=== PATIENT | female | born 1990 | race Caucasian/White ===

== ENCOUNTER 2018-04-17 08:24 | Emergency (ER) | payer MEDICAID ==
[~2018-04-17] VITALS: Ht 160 cm; Wt 67.1 kg
[~2018-04-17 08:24] MED LIST: AZITHROMYCIN250 MG ORAL; NKM; TAMIFLU75 MG ORAL
[2018-04-17 08:39] VITALS: BP 101/70
--- NOTE | 2018-04-17 08:47 | Emergency Room Report ---
History of Present Illness General Chief Complaint: Pain Source: Patient Present Illness HPI Patient presents with complaints of discomfort to the medial aspect of the left foot Patient points to the palmar aspect Reports that she has been having this discomfort off-and-on for a while however reports that she feels the area has become more uncomfortable that she this morning with standing Denies any obvious trauma she reports that she did go hiking which she was not sure if it exacerbated the situation denies any other fall or trauma denies any pain to the ankle Allergies: Coded Allergies: NO KNOWN DRUG ALLERGIES (Verified Allergy, Unknown, 08/10/15) Patient History Past Medical History: see triage record Pertinent Family History: none Now: No Reviewed Nursing Documentation: PMH: Agreed; PSxH: Agreed Nursing Documentation-PMH Past Medical History: No Stated History Hx Hypertension: No Hx Asthma: No Hx COPD: No Hx Diabetes: No Hx Neurological Problems: No - Scoliosis Review of Systems All Other Systems: negative except mentioned in HPI Physical Exam Vital Signs Date Time Temp Pulse Resp B/P (MAP) Pulse Ox O2 Delivery O2 Flow Rate FiO2 04/17/18 08:27 98.5 75 18 101/70 100 Room Air 98.4 Sp02 EP Interpretation: reviewed, normal General Appearance: well appearing, no apparent distress Head: normocephalic, atraumatic Eyes: bilateral eye PERRL, bilateral eye EOMI ENT: normal pharynx Neck: supple Musculoskeletal: other - Discomfort noted to palpation of the medial aspect of the palmar region on the left foot no obvious edema no obvious ecchymosis there is some increased discomfort with extending the foot Neurologic: alert, oriented x3 Skin: normal color, no rash Lymphatic: no adenopathy Medical Decision Making Diagnostic Impression: Primary Impression: Foot sprain ER Course Given the history exam and presentation Patient has imaging studies obtained No obvious acute pathology is seen patient appears to have some aspect of tendinitis/plantar fasciitis At this time will have conservative outpatient follow-up and is provided with podiatry referral Other X-Ray Diagnostic Results Other X-Ray Diagnostic Results : X-Ray ordered: Left foot # of Views/Limited Vs Complete: 4 View Indication: Pain EP Interpretation: Yes Interpretation: no dislocation, no fractures, other - Mild soft tissue swelling, Impression: No acute disease - Navicular question acuity pathology Electronically Signed by: Ali Jamehdor, DO Last Vital Signs Date Time Temp Pulse Resp B/P (MAP) Pulse Ox O2 Delivery O2 Flow Rate FiO2 04/17/18 08:39 98.4 75 18 101/70 100 Room Air 98.4 Status: improved Disposition: HOME, SELF-CARE Condition: Improved Scripts Ibuprofen* (MOTRIN*) 600 Mg Tablet 600 MG ORAL Q8H PRN for For Pain, #20 TAB 0 Refills Prov: Neil Monroe DO 04/17/18 Additional Instructions: Patient is provided with the discharge instructions notified to follow up with primary doctor in the next 2-3 days otherwise return to the er with any worsening symptoms. Please note that this report is being documented using [employer] technology. This can lead to erroneous entry secondary to incorrect interpretation by the dictating instrument. Neil Monroe DO Apr 17, 2018 08:47
[2018-04-17] MEDS ORDERED: IBUPROFEN600 MG ORAL (10:14)
[2018-04-17 10:37] VITALS: BP 101/70
--- NOTE | 2018-04-17 10:40 | Diagnostic Imaging Report ---
Indication: Foot pain Comparison: None Findings: 3 views of the left foot were obtained. No acute fractures, malalignment, erosions or periostitis are identified. There is an accessory navicular ossicle in the posterior medial part of the navicular bone in the expected location of the posterior tibial tendon insertion. Some soft tissue swelling is noted adjacently. Correlate clinically. Impression: Os naviculare with adjacent soft tissue swelling. Posterior tibial tendon dysfunction or tendinosis may be present. Suggest the referral to podiatry or orthopedic surgeon for further clinical evaluation. No acute fracture or injury identified.
== END 2018-04-17 10:38 | disposition home or self-care (01) ==
LOC: EMR 08:52
DX: S93.602A Unspecified sprain of left foot, initial encounter (principal); X58.XXXA Exposure to other specified factors, initial encounter; Y92.9 Unspecified place or not applicable
CPT/HCPCS: 99283